=== PATIENT | female | born 1995 | race Caucasian/White ===

== ENCOUNTER 2017-08-16 17:07 | Emergency (ER) | payer SELFPAY ==
[~2017-08-16] VITALS: Ht 167.6 cm; Wt 62.4 kg
[~2017-08-16 17:07] MED LIST: BCPILLS PO; FLX10 PO; OXYC7.5T62 PO; PRVHFAIN PO; ZNTT/150 PO
[2017-08-16 17:09] VITALS: TEMP 36.2; Ht 167.6 cm; Wt 62.4 kg
[2017-08-16] MEDS ORDERED: PROMETHAZINE HCL INJ 25 MG in SODIUM CHLORIDE 0.9% 50ML 50 ML IV STA (17:32)
--- NOTE | 2017-08-16 17:43 | EMERGENCY ROOM VISIT NOTE ---
History First contact with patient: 17:13 Chief Complaint: HEADACHE Stated Complaint: MIGRAINE History of Present Illness The patient is a 22 year old female who presents to the Emergency Room with complaints of migraine. The patient states that history of migraine. This is her sixth migraine in one month. She states that she came to the emergency room today because this migraine was different than her previous migraines. Today she complains that she has had one day of migraine. She describes the pain as starting on the left side of her cheondoism, and it radiate into the right side of her cheondoism. The right side is now worse than left. She describes it as a stabbing pain. The pain does not radiate to the back of the neck or across scalp. She did note some very transient momentary numbness in both temples, but this has not resolved. She denies any blurry vision, double vision , or flashes or floaters. She denies any other focal neurological symptoms including dysphagia with comprehension, difficulty with swallowing, unilateral weakness, or other peripheral sensory changes. Because her migraine, the patient states that she has been nauseous for the past day and has been unable to eat much. She is not had any vomiting. She does note some light sensitivity. She denies any neck stiffness. She states that she has not had any fevers, chills or sweats. She is not any abdominal pain, diarrhea, constipation, or urinary symptoms such as dysuria or urinary frequency. The patient does take rizatriptan for her migraines. She took a dose yesterday , but has not taken anything for today. In the past she has taken sumatriptan, but this was not helpful so she stopped taking it. She has not tried any other modalities such as Tylenol or Motrin. She denies any falls or head trauma. She does have history of anxiety and is on Lexapro for this. She notes in the past month her PCP increased her dose of Lexapro from 5 mg to 10 mg. He stated to her that he felt this may also help her with her headaches and migraines. However she states that while this helped her anxiety, it is done nothing for the frequency of migraines. Review of Systems A 10 point review of systems was negative unless stated above. Past Medical/Surgical History Medical Problems: (1) Asthma Anxiety Family History Diabetes mellitus Gallbladder disease Migraines Social History Smoking Status: Never Smoker Alcohol Use: occasionally Marital Status: single Housing Status: lives with family Occupation Status: employed Current/Historical Medications Scheduled Escitalopram (Lexapro), 10 MG PO DAILY Scheduled PRN Albuterol (Ventolin Hfa), 2 PUFF PO DIRECTED PRN for SOB/Wheezing Hydrocodone/Acetaminophen 5MG/325MG (Murray 5MG/325MG), 1 TAB PO Q6H PRN for Pain Norgestimate-Ethinyl Estradiol (Previfem), 1 TAB PO DAILY PRN for control Miscellaneous Medications Rizatriptan Benzoate (Maxalt), 5 MG PO Allergies No known allergies Physical Exam Vital Signs Date Time Temp Pulse Resp B/P (MAP) Pulse Ox O2 Delivery O2 Flow Rate FiO2 08/16/17 19:33 77 18 120/81 99 08/16/17 19:27 77 18 120/81 99 Room Air 08/16/17 18:51 78 15 120/76 100 Room Air 08/16/17 17:09 36.2 93 16 146/90 95 Room Air Physical Exam Constitutional: Vital signs as above were reviewed. The patient conversive, responds appropriately to questions, will laugh at jokes from told by her friends. Eyes: Pupils equal, round, and reactive to light. Extraocular muscles are intact. No proptosis. No photophobia. ENT: Mucous membranes are moist. Oropharynx is clear. No sinus tenderness. TMs are clear bilaterally. Cardiovascular: Heart with a regular rate and rhythm. No pedal edema appreciated. Respiratory: Lungs clear to auscultation bilaterally. No wheezes, rales, or rhonchi appreciated. No accessory muscle use. No retractions. No increased work of breathing. GI: Abdomen soft, nontender, nondistended. Normal active bowel sounds. No abdominal hernias appreciated. No rebound. No guarding. Musculoskeletal: No midline cervical or vertebral tenderness. No gross deformities. No bony tenderness. No calf swelling or tenderness. Integumentary: Warm, dry, no rashes appreciated. Neurological: Patient awake, alert, and oriented x 3. Cranial nerves two through 12 grossly intact. Kernig's and Brudzinski sign is negative Negative for pronator drift 5 out of 5 motor strength in both upper and lower extremities Normal distal sensation both upper and lower limbs Normal finger to nose testing Normal [id number] testing Lymph: No cervical lymphadenopathy appreciated. Medical Decision & Procedures Laboratory Results 08/16/17 17:45 Red Blood Count 5.01, Mean Corpuscular Volume 89.0, Mean Corpuscular Hemoglobin 29.7, Mean Corpuscular Hemoglobin Concent 33.4, Mean Platelet Volume 9.5, Neutrophils (%) (Auto) 68.6, Lymphocytes (%) (Auto) 24.1, Monocytes (%) (Auto) 5.6, Eosinophils (%) (Auto) 1.1, Basophils (%) (Auto) 0.3, Neutrophils # (Auto) 5.43, Lymphocytes # (Auto) 1.91, Monocytes # (Auto) 0.44, Eosinophils # (Auto) 0.09, Basophils # (Auto) 0.02 08/16/17 17:45 Test 08/16/17 17:45 White Blood Count 7.91 K/uL (4.8-10.8) Red Blood Count 5.01 M/uL (4.2-5.4) Hemoglobin 14.9 g/dL (12.0-16.0) Hematocrit 44.6 % (37-47) Mean Corpuscular Volume 89.0 fL (80-100) Mean Corpuscular Hemoglobin 29.7 pg (25-34) Mean Corpuscular Hemoglobin Concent 33.4 g/dl (32-36) Platelet Count 282 K/uL (130-400) Mean Platelet Volume 9.5 fL (7.4-10.4) Neutrophils (%) (Auto) 68.6 % Lymphocytes (%) (Auto) 24.1 % Monocytes (%) (Auto) 5.6 % Eosinophils (%) (Auto) 1.1 % Basophils (%) (Auto) 0.3 % Neutrophils # (Auto) 5.43 K/uL (1.4-6.5) Lymphocytes # (Auto) 1.91 K/uL (1.2-3.4) Monocytes # (Auto) 0.44 K/uL (0.11-0.59) Eosinophils # (Auto) 0.09 K/uL (0-0.5) Basophils # (Auto) 0.02 K/uL (0-0.2) RDW Standard Deviation 39.4 fL (36.4-46.3) RDW Coefficient of Variation 12.2 % (11.5-14.5) Immature Granulocyte % (Auto) 0.3 % Immature Granulocyte # (Auto) 0.02 K/uL (0.00-0.02) Anion Gap 7.0 mmol/L (3-11) Est Creatinine Clear Calc Drug Dose 105.8 ml/min Estimated GFR () 125.1 Estimated GFR (Non- 107.9 BUN/Creatinine Ratio 11.3 (10-20) Calcium Level 9.1 mg/dl (8.5-10.1) Medications Administered Medications (Trade) Dose Ordered Sig/Otoniel Route Start Time Stop Time Status Last Admin Dose Admin Sodium Chloride 1,000 ml @ 999 mls/hr Q1H1M ONCE IV 08/16/17 17:45 08/16/17 18:45 DC 08/16/17 17:45 999 MLS/HR Dexamethasone Sodium Phosphate (Decadron Inj) 10 mg NOW ONCE IV 08/16/17 17:45 08/16/17 17:46 DC 08/16/17 17:51 10 MG Promethazine HCl 25 mg/Sodium Chloride 51 ml @ 204 mls/hr NOW STAT IV 08/16/17 17:32 08/16/17 17:46 DC 08/16/17 18:07 204 MLS/HR Diphenhydramine HCl (Benadryl Cap) 50 mg NOW ONCE PO 08/16/17 17:45 08/16/17 17:46 DC 08/16/17 17:51 50 MG ED Course 17:15 - The patient was seen and evaluated by Dr. Josue Boland MD Family Medicine 17:30 - Labs: CBC, BMP Decadron 10 mg IV, Phenergan 25 mg IV; Benadryl 50 mg PO 1 L NSS bolus 18:45 - Re-assessed, feeling better 19:05 - Discussed discharge home; patient agreeable Discharge paperwork completed, patient discharged in stable condition Medical Decision This is a 22-year old patient with a history of migraines, presents with a migraine that was not controlled with her usual rizatriptan. Differential diagnosis includes tension headache, migraine headache, cluster headache, intracranial bleed bleed, head trauma, glaucoma, sinus congestion. The patient had a benign neurological examination in the emergency department. In addition, through observing her demeanor, I noted that she was laughing and joking around with her friends in the room, which may be far less concerned for life threatening cause such as intracranial bleed. As such I do not feel that acute imaging was indicated at this time. She was treated with a combination of Decadron, Phenergan and Benadryl with improvement in her headache. She noted that she has a follow-up with her PCP tomorrow and that PCP had noted to her he would make referral to neurology if symptoms of migraine were not controlled. I advised her to get neurology follow -up through PCP at this point. I did not adjust her chronic medications and defer this to her PCP. The patient was feeling well at discharge. She was discharged in stable condition with instructions of signs and symptoms that should prompt return to the emergency department. [place] Drug Monitoring Program Search Results: patient reviewed within database, no issues identified Head Trauma GCS Score: 15 Blood Pressure Screening Patient's blood pressure: Elevated blood pressure (normalized at discharge) Blood pressure disposition: Elevated BP felt to be situational Impression Primary Impression: Migraine Departure Information Dispostion Home / Self-Care Condition FAIR Prescriptions Hydrocodone/Acetaminophen 5MG/325MG (Murray 5MG/325MG) Tab 1 TAB PO Q6H Y for Pain for 1 Day, #5 TAB PRN PAIN Prov: Josue Boland MD 08/16/17 Referrals Kip Cee M.D. (PCP) Patient Instructions My [facility] Additional Instructions You came to the emergency department for a migraine. We treated with a combination of steroid and antinausea medication. You did get some improvement with this. Your neurological exam was completely normal and therefore we felt we could discharge home back to the care of her primary care provider. You noted to us that you have follow up with them tomorrow. You can discuss with them any changes in your chronic medications that you use for migraine. In the meantime please ensure that you stay well-hydrated. You can first try Tylenol or Motrin for headaches or migraine. If this does not work you can try the Rizatriptan. If this does not work, we will give you 5 tablets of Murray, that may help you with your pain until you see your primary care provider tomorrow. If your symptoms fail to improve, acutely worsen, please seek medical attention immediately by either calling your primary care provider or going to your nearest emergency department. Otherwise, please see your primary care provider tomorrow to ensure that your symptoms continue to improve. It was a pleasure to be involved in your care and we wish you all the best.
[2017-08-16] MEDS ORDERED: SODIUM CHLORIDE 0.9% 1000ML 1,000 ML IV ONE (17:45)
[2017-08-16] MEDS ORDERED: DEXAMETHASONE SOD INJ 10 MG/ML VIAL IV ONE (17:45)
[2017-08-16 18:02] LABS: BASO % 0.3 %; BASO ABS # 0.02 K/uL (0-0.2); COMPLETE YES; EOS % 1.1 %; HEMATOCRIT 44.6 % (37-47); IG% 0.3 %; LYMPH % 24.1 %; LYMPH ABS # 1.91 K/uL (1.2-3.4); MEAN CORPUSCULAR HEMOGLOBIN 29.7 pg (25-34); MEAN CORPUSCULAR HGB CONC 33.4 g/dl (32-36); MEAN PLATELET VOLUME 9.5 fL (7.4-10.4); MONO % 5.6 %; NEUT % 68.6 %; PLATELET COUNT 282 K/uL (130-400); RED BLOOD COUNT 5.01 M/uL (4.2-5.4); WHITE BLOOD COUNT 7.91 K/uL (4.8-10.8)
[2017-08-16] MEDS ORDERED: ESCI10TA17 PO (18:02)
[2017-08-16] MEDS ORDERED: NORGTAB50 PO (18:02)
[2017-08-16] MEDS ORDERED: RIZA5TAB10 PO (18:02)
--- NOTE | 2017-08-16 18:18 | EMERGENCY ROOM VISIT NOTE ---
ED Visit Note First contact with patient: 17:13 The patient was seen and examined with Dr. Josue Boland. I agree with the history, physical and findings. Please see the note for disposition and details.
[2017-08-16 18:25] LABS: BUN/CREATININE RATIO 11.3 (10-20); CALCIUM 9.1 mg/dl (8.5-10.1); CREATININE 0.78 mg/dl (0.60-1.20); POTASSIUM 3.5 mmol/L (3.5-5.1)
[2017-08-16] MEDS ORDERED: HYDR-5688 PO (19:06)
[2017-08-16 19:33] VITALS: BP 120/81; PULSE 77; O2SAT 99
== END 2017-08-16 19:33 | disposition home or self-care (01) ==
LOC: C.EDB 17:09 → C.EDC 19:33
DX: G43.909 Migraine, unspecified, not intractable, without status migrainosus (principal); F41.9 Anxiety disorder, unspecified; J45.909 Unspecified asthma, uncomplicated; Z79.899 Other long term (current) drug therapy; Z83.3 Family history of diabetes mellitus; Z83.79 Family history of other diseases of the digestive system